=== PATIENT | female | born 1945 | race Caucasian/White ===

== ENCOUNTER 2019-09-16 14:33 | Inpatient (IN) | payer MEDICARE, MEDICAID ==
[~2019-09-16] VITALS: Ht 165.1 cm; Wt 91.6 kg
[2019-09-16 14:33] VITALS: BP_SYST 107
[2019-09-16] MEDS ORDERED: LORazepam 1 MG TABLET PO ONE (15:30)
[2019-09-16 15:47] LABS: BASOPHILS % (AUTO) 0.5 % (0.0-2.0); EOSINOPHILS # (AUTO) 0.2 K/uL (0.0-0.4); EOSINOPHILS % (AUTO) 1.7 % (0.0-4.0); HEMATOCRIT 41.9 % (36-48); HEMOGLOBIN 14.4 g/dL (12.0-16.0); LYMPHOCYTES # (AUTO) 4.8 K/uL (1.0-5.5); LYMPHOCYTES % (AUTO) 51.7 % (20.5-51.5); MEAN CORPUSCULAR HEMOGLOBIN 33 pg (27-31); MEAN CORPUSCULAR HGB CONC 34 % (32-36); MEAN CORPUSCULAR VOLUME 97 fL (79.0-98.0); MONOCYTES # (AUTO) 0.8 K/uL (0.0-1.0); MONOCYTES % (AUTO) 8.3 % (1.7-9.3); NEUTROPHILS # (AUTO) 3.5 K/uL (1.8-7.7); NEUTROPHILS % (AUTO) 37.8 % (40.0-70.0); PLATELET COUNT (AUTO) 208 K/uL (130-430); RED BLOOD CELL COUNT(AUTO) 4.33 MIL/uL (4.2-6.2); RED CELL DISTRIBUTION WIDTH 13.2 % (9.0-15.0); WHITE BLOOD COUNT (AUTO) 9.3 K/uL (4.8-10.8)
[2019-09-16 15:56] LABS: ANION GAP 5 (5-15); CALCIUM 8.9 mg/dL (8.4-11.0); CHLORIDE 103 mmol/L (98-107); CREATININE 0.89 mg/dL (0.55-1.30); GLUCOSE 134 mg/dL (70-99); POTASSIUM 3.7 mmol/L (3.5-5.1); SODIUM SERUM 138 mmol/L (136-145); UREA NITROGEN, BLOOD 18 mg/dL (8-21)
[2019-09-16 16:00] LABS: ALANINE AMINOTRANSFERASE 21 U/L (12-78); ALBUMIN 3.4 g/dL (3.4-4.8); ASPARTATE AMINOTRANSFERASE 14 U/L (10-37); TOTAL BILIRUBIN 0.3 mg/dL (0.0-1.0)
[2019-09-16] MEDS ORDERED: DIVA500T4 PO (17:13)
[2019-09-16] MEDS ORDERED: LITH8SOL PO (17:13)
[2019-09-16] MEDS ORDERED: ASPIRIN 81 MG TAB.CHEW PO ONE (17:15)
[2019-09-16 18:02] VITALS: BP_SYST 146
[2019-09-16] MEDS ORDERED: FLU VACC TS2019(65UP)/MF59C/PF 45 MCG/0.5 ML SYRINGE I.M. PRN (18:15)
[2019-09-16 20:00] VITALS: BP_SYST 120
[2019-09-16] MEDS ORDERED: DIVALPROEX SODIUM 500 MG TAB.SR.24H (DEPAKOTE ER) PO SCH (21:00)
[2019-09-16] MEDS: ZOLPIDEM TARTRATE 5 MG TABLET PO PRN (21:18)
[2019-09-17 00:07] VITALS: BP_SYST 116
[2019-09-17 06:56] LABS: BASOPHILS # (AUTO) 0.1 K/uL (0.0-0.2); BASOPHILS % (AUTO) 0.8 % (0.0-2.0); EOSINOPHILS # (AUTO) 0.7 K/uL (0.0-0.4); HEMATOCRIT 41.7 % (36-48); HEMOGLOBIN 14.6 g/dL (12.0-16.0); LYMPHOCYTES # (AUTO) 4.8 K/uL (1.0-5.5); LYMPHOCYTES % (AUTO) 35.1 % (20.5-51.5); MEAN CORPUSCULAR HEMOGLOBIN 34 pg (27-31); MEAN CORPUSCULAR HGB CONC 35 % (32-36); MEAN CORPUSCULAR VOLUME 98 fL (79.0-98.0); MONOCYTES # (AUTO) 0.9 K/uL (0.0-1.0); MONOCYTES % (AUTO) 6.5 % (1.7-9.3); NEUTROPHILS # (AUTO) 7.2 K/uL (1.8-7.7); PLATELET COUNT (AUTO) 281 K/uL (130-430); RED BLOOD CELL COUNT(AUTO) 4.25 MIL/uL (4.2-6.2); WHITE BLOOD COUNT (AUTO) 13.6 K/uL (4.8-10.8)
[2019-09-17 07:04] LABS: ANION GAP 2 (5-15); CALCIUM 8.6 mg/dL (8.4-11.0); CHLORIDE 103 mmol/L (98-107); CREATININE 0.62 mg/dL (0.55-1.30); GLUCOSE 85 mg/dL (70-99); POTASSIUM 3.6 mmol/L (3.5-5.1); SODIUM SERUM 137 mmol/L (136-145); UREA NITROGEN, BLOOD 15 mg/dL (8-21)
[2019-09-17 07:19] LABS: ALANINE AMINOTRANSFERASE 20 U/L (12-78); ALBUMIN 3.3 g/dL (3.4-4.8); ASPARTATE AMINOTRANSFERASE 16 U/L (10-37); THYROID STIMULATING HORMONE 1.18 uIu/mL (0.36-3.74); TOTAL BILIRUBIN 0.4 mg/dL (0.0-1.0)
[2019-09-17 08:00] VITALS: BP_SYST 124
[2019-09-17 08:32] LABS: CHOLESTEROL 198 mg/dL (<200); HDL CHOLESTEROL 37 mg/dL (>55); LDL CHOLESTEROL 135 mg/dL (<100); TRIGLYCERIDES 133 mg/dL (30-150)
[2019-09-17] MEDS ORDERED: LITHIUM CITRATE PO SCH ×2 (09:00)
[2019-09-17 09:09] LABS: NEUTROPHILS % (AUTO) 52.6 % (40.0-70.0)
[2019-09-17] MEDS: LITHIUM CARBONATE 150 MG CAPSULE PO SCH (10:52)
[2019-09-17 11:21] VITALS: BP_SYST 120
[2019-09-17 16:27] VITALS: BP_SYST 131
[2019-09-17 20:00] VITALS: BP_SYST 129
[2019-09-17 20:39] LABS: LITHIUM 1.2 mEq/L (0.50-1.0)
[2019-09-18 01:39] VITALS: BP_SYST 130
[2019-09-18 08:00] VITALS: BP_SYST 119
[2019-09-18 12:06] LABS: BASOPHILS # (AUTO) 0.1 K/uL (0.0-0.2); BASOPHILS % (AUTO) 0.6 % (0.0-2.0); EOSINOPHILS # (AUTO) 0.3 K/uL (0.0-0.4); EOSINOPHILS % (AUTO) 2.9 % (0.0-4.0); HEMOGLOBIN 14.8 g/dL (12.0-16.0); LYMPHOCYTES % (AUTO) 32.8 % (20.5-51.5); MEAN CORPUSCULAR HEMOGLOBIN 33 pg (27-31); MEAN CORPUSCULAR HGB CONC 34 % (32-36); MEAN CORPUSCULAR VOLUME 98 fL (79.0-98.0); MONOCYTES # (AUTO) 0.7 K/uL (0.0-1.0); MONOCYTES % (AUTO) 7.7 % (1.7-9.3); NEUTROPHILS # (AUTO) 5.1 K/uL (1.8-7.7); PLATELET COUNT (AUTO) 192 K/uL (130-430); RED CELL DISTRIBUTION WIDTH 13.2 % (9.0-15.0)
[2019-09-18 12:15] LABS: ANION GAP 7 (5-15); CALCIUM 8.5 mg/dL (8.4-11.0); CHLORIDE 105 mmol/L (98-107); CREATININE 0.76 mg/dL (0.55-1.30); GLUCOSE 145 mg/dL (70-99); SODIUM SERUM 138 mmol/L (136-145); UREA NITROGEN, BLOOD 17 mg/dL (8-21)
[2019-09-18 12:34] VITALS: BP_SYST 122
[2019-09-18 16:04] VITALS: BP_SYST 119; BP_SYST 125
[2019-09-19 01:11] VITALS: BP_SYST 138
[2019-09-19] MEDS: ZOLPIDEM TARTRATE 5 MG TABLET PO PRN ×2 (03:30→21:18)
[2019-09-19 08:00] VITALS: BP_SYST 102
[2019-09-19] MEDS: LITHIUM CARBONATE 150 MG CAPSULE PO SCH ×2 (08:13→09:00)
[2019-09-19 12:00] VITALS: BP_SYST 109
[2019-09-19 16:04] VITALS: BP_SYST 136
[2019-09-19 20:00] VITALS: BP_SYST 120
[2019-09-20 08:30] VITALS: BP_SYST 140
[2019-09-20] MEDS: LITHIUM CARBONATE 150 MG CAPSULE PO SCH (09:35)
[2019-09-20] MEDS ORDERED: LITHIUM CARBONATE 300 MG TABLET.SA PO ONE (09:45)
[2019-09-20 12:36] VITALS: BP_SYST 96
[2019-09-20 16:00] VITALS: BP_SYST 135
[2019-09-20 20:00] VITALS: BP_SYST 111
[2019-09-20] MEDS: ZOLPIDEM TARTRATE 5 MG TABLET PO PRN (21:25)
[2019-09-21 04:00] VITALS: BP_SYST 126
[2019-09-21 08:00] VITALS: BP_SYST 151
[2019-09-21] MEDS: LITHIUM CARBONATE 300 MG TABLET.SA PO SCH (09:11)
[2019-09-21 12:00] VITALS: BP_SYST 122
[2019-09-21 16:14] VITALS: BP_SYST 127
[2019-09-21 20:00] VITALS: BP_SYST 149
[2019-09-21] MEDS: ZOLPIDEM TARTRATE 5 MG TABLET PO PRN (21:50)
[2019-09-22 02:01] VITALS: BP_SYST 107
[2019-09-22 07:55] VITALS: BP_SYST 115
[2019-09-22] MEDS: LITHIUM CARBONATE 300 MG TABLET.SA PO SCH (09:37)
[2019-09-22 12:36] VITALS: BP_SYST 139
[2019-09-22 16:00] VITALS: BP_SYST 129
[2019-09-22] MEDS: ZOLPIDEM TARTRATE 5 MG TABLET PO PRN (21:30)
[2019-09-23 00:43] VITALS: BP_SYST 154
[2019-09-23 08:00] VITALS: BP_SYST 121
[2019-09-23] MEDS ORDERED: CITALOPRAM HYDROBROMIDE 20 MG TABLET PO SCH (09:00)
[2019-09-23] MEDS: LITHIUM CARBONATE 300 MG TABLET.SA PO SCH (09:54)
[2019-09-23 12:00] VITALS: BP_SYST 118
[2019-09-23 16:00] VITALS: BP_SYST 125
[2019-09-23 20:00] VITALS: BP_SYST 128
[2019-09-23] MEDS: ZOLPIDEM TARTRATE 5 MG TABLET PO PRN (20:56)
[2019-09-24] VITALS: BP_SYST 130
[2019-09-24] MEDS: CITALOPRAM HYDROBROMIDE 20 MG TABLET PO SCH (10:29)
[2019-09-24] MEDS: LITHIUM CARBONATE 300 MG TABLET.SA PO SCH ×2 (10:29→21:20)
[2019-09-24 12:00] VITALS: BP_SYST 111
[2019-09-24 16:51] VITALS: BP_SYST 124
[2019-09-24 20:00] VITALS: BP_SYST 121
[2019-09-24] MEDS: ZOLPIDEM TARTRATE 5 MG TABLET PO PRN (21:20)
[2019-09-25 00:38] VITALS: BP_SYST 129
[2019-09-25 07:18] LABS: BASOPHILS # (AUTO) 0.1 K/uL (0.0-0.2); BASOPHILS % (AUTO) 0.6 % (0.0-2.0); EOSINOPHILS # (AUTO) 0.3 K/uL (0.0-0.4); EOSINOPHILS % (AUTO) 2.4 % (0.0-4.0); HEMATOCRIT 43.7 % (36-48); HEMOGLOBIN 15.1 g/dL (12.0-16.0); LYMPHOCYTES # (AUTO) 4.4 K/uL (1.0-5.5); LYMPHOCYTES % (AUTO) 37.8 % (20.5-51.5); MEAN CORPUSCULAR HEMOGLOBIN 33 pg (27-31); MEAN CORPUSCULAR HGB CONC 35 % (32-36); MEAN CORPUSCULAR VOLUME 96 fL (79.0-98.0); MONOCYTES # (AUTO) 1.1 K/uL (0.0-1.0); MONOCYTES % (AUTO) 9.3 % (1.7-9.3); NEUTROPHILS # (AUTO) 5.8 K/uL (1.8-7.7); NEUTROPHILS % (AUTO) 49.9 % (40.0-70.0); PLATELET COUNT (AUTO) 234 K/uL (130-430); RED BLOOD CELL COUNT(AUTO) 4.55 MIL/uL (4.2-6.2); RED CELL DISTRIBUTION WIDTH 12.9 % (9.0-15.0); WHITE BLOOD COUNT (AUTO) 11.7 K/uL (4.8-10.8)
[2019-09-25 07:40] LABS: ALANINE AMINOTRANSFERASE 44 U/L (12-78); ALBUMIN 3.5 g/dL (3.4-4.8); ANION GAP 5 (5-15); ASPARTATE AMINOTRANSFERASE 22 U/L (10-37); CALCIUM 8.8 mg/dL (8.4-11.0); CHLORIDE 102 mmol/L (98-107); CREATININE 0.71 mg/dL (0.55-1.30); GLUCOSE 101 mg/dL (70-99); POTASSIUM 3.9 mmol/L (3.5-5.1); SODIUM SERUM 134 mmol/L (136-145); TOTAL BILIRUBIN 0.5 mg/dL (0.0-1.0); UREA NITROGEN, BLOOD 15 mg/dL (8-21)
[2019-09-25 08:00] VITALS: BP_SYST 91
[2019-09-25] MEDS: LITHIUM CARBONATE 300 MG TABLET.SA PO SCH ×2 (09:09→21:17)
[2019-09-25] MEDS: CITALOPRAM HYDROBROMIDE 20 MG TABLET PO SCH (09:09)
[2019-09-25 12:36] VITALS: BP_SYST 141
[2019-09-25 16:05] VITALS: BP_SYST 119
[2019-09-25 20:00] VITALS: BP_SYST 133
[2019-09-26] MEDS: ZOLPIDEM TARTRATE 5 MG TABLET PO PRN (00:23)
[2019-09-26 01:52] VITALS: BP_SYST 131
[2019-09-26 08:36] VITALS: BP_SYST 124
[2019-09-26] MEDS: CITALOPRAM HYDROBROMIDE 20 MG TABLET PO SCH (08:41)
[2019-09-26] MEDS: LITHIUM CARBONATE 300 MG TABLET.SA PO SCH ×2 (08:42→20:38)
[2019-09-26 19:00] VITALS: BP_SYST 132
[2019-09-26 20:00] VITALS: BP_SYST 132
[2019-09-27] VITALS: BP_SYST 124
[2019-09-27 08:04] VITALS: BP_SYST 141
[2019-09-27] MEDS: LITHIUM CARBONATE 300 MG TABLET.SA PO SCH ×2 (08:16→21:00)
[2019-09-27] MEDS: CITALOPRAM HYDROBROMIDE 20 MG TABLET PO SCH (08:17)
[2019-09-27 11:24] VITALS: BP_SYST 127
[2019-09-27 16:31] VITALS: BP_SYST 143
[2019-09-27] MEDS ORDERED: DIVALPROEX SODIUM 500 MG TABLET( DEPAKOTE) PO ONE (16:45)
[2019-09-27 20:00] VITALS: BP_SYST 143
[2019-09-27] MEDS: DIVALPROEX SODIUM 500 MG TABLET( DEPAKOTE) PO SCH (21:00)
[2019-09-28 01:22] VITALS: BP_SYST 140
[2019-09-28 04:00] VITALS: BP_SYST 138
[2019-09-28 06:30] LABS: BASOPHILS # (AUTO) 0.1 K/uL (0.0-0.2); BASOPHILS % (AUTO) 0.7 % (0.0-2.0); EOSINOPHILS # (AUTO) 0.4 K/uL (0.0-0.4); EOSINOPHILS % (AUTO) 3.2 % (0.0-4.0); HEMATOCRIT 41.4 % (36-48); HEMOGLOBIN 14.3 g/dL (12.0-16.0); LYMPHOCYTES # (AUTO) 4.9 K/uL (1.0-5.5); LYMPHOCYTES % (AUTO) 37.1 % (20.5-51.5); MEAN CORPUSCULAR HEMOGLOBIN 33 pg (27-31); MEAN CORPUSCULAR HGB CONC 34 % (32-36); MEAN CORPUSCULAR VOLUME 97 fL (79.0-98.0); MONOCYTES # (AUTO) 1.2 K/uL (0.0-1.0); MONOCYTES % (AUTO) 8.8 % (1.7-9.3); NEUTROPHILS # (AUTO) 6.6 K/uL (1.8-7.7); NEUTROPHILS % (AUTO) 50.2 % (40.0-70.0); PLATELET COUNT (AUTO) 279 K/uL (130-430); RED BLOOD CELL COUNT(AUTO) 4.29 MIL/uL (4.2-6.2); RED CELL DISTRIBUTION WIDTH 12.8 % (9.0-15.0); WHITE BLOOD COUNT (AUTO) 13.1 K/uL (4.8-10.8)
[2019-09-28 06:59] LABS: ALANINE AMINOTRANSFERASE 41 U/L (12-78); ALBUMIN 3.3 g/dL (3.4-4.8); ANION GAP 1 (5-15); ASPARTATE AMINOTRANSFERASE 17 U/L (10-37); CALCIUM 8.6 mg/dL (8.4-11.0); CHLORIDE 104 mmol/L (98-107); CREATININE 0.74 mg/dL (0.55-1.30); GLUCOSE 100 mg/dL (70-99); POTASSIUM 3.6 mmol/L (3.5-5.1); SODIUM SERUM 132 mmol/L (136-145); TOTAL BILIRUBIN 0.4 mg/dL (0.0-1.0); UREA NITROGEN, BLOOD 14 mg/dL (8-21); VALPROIC ACID 63 ug/mL (50-100)
[2019-09-28] MEDS: DIVALPROEX SODIUM 500 MG TABLET( DEPAKOTE) PO SCH ×2 (10:07→20:56)
[2019-09-28] MEDS: CITALOPRAM HYDROBROMIDE 20 MG TABLET PO SCH (10:07)
[2019-09-28] MEDS: LITHIUM CARBONATE 300 MG TABLET.SA PO SCH (10:07)
[2019-09-28 12:45] VITALS: BP_SYST 138
[2019-09-28 16:13] LABS: LITHIUM 1.76 mEq/L (0.50-1.0)
[2019-09-28 16:15] VITALS: BP_SYST 121
[2019-09-28 20:00] VITALS: BP_SYST 106
[2019-09-28] MEDS ORDERED: COMMUNICATION ORDER XX ONE (21:15)
[2019-09-28] MEDS ORDERED: ZOLPIDEM TARTRATE 5 MG TABLET PO PRN (21:30)
[2019-09-29 01:18] VITALS: BP_SYST 148
[2019-09-29 08:00] VITALS: BP_SYST 140
[2019-09-29] MEDS: DIVALPROEX SODIUM 500 MG TABLET( DEPAKOTE) PO SCH (09:25)
[2019-09-29] MEDS: CITALOPRAM HYDROBROMIDE 20 MG TABLET PO SCH (09:25)
[2019-09-29 12:30] VITALS: BP_SYST 122
[2019-09-29 14:43] VITALS: BP_SYST 145
== END 2019-09-29 16:34 | DRG 816 ==
LOC: SED 14:33 → STU 17:05 → SMU 09-21 22:27
PROVIDERS: ADMIT Internal Medicine; ATTEND Internal Medicine
DX: T56.891A Toxic effect of other metals, accidental (unintentional), initial encounter (principal); E44.1 Mild protein-calorie malnutrition; F31.4 Bipolar disorder, current episode depressed, severe, without psychotic features; R07.89 Other chest pain; E66.9 Obesity, unspecified; E78.5 Hyperlipidemia, unspecified; I10 Essential (primary) hypertension; F41.1 Generalized anxiety disorder; F41.9 Anxiety disorder, unspecified; Z79.899 Other long term (current) drug therapy; Z91.14 Patient's other noncompliance with medication regimen; Z68.33 Body mass index [BMI] 33.0-33.9, adult; Z59.0 Homelessness; Y92.89 Other specified places as the place of occurrence of the external cause
CPT/HCPCS: 36415; 71045; 80048; 80053; 80061; 80164-TC; 80178-TC; 82550-TC; 83735-TC; 83880; 84439; 84443-TC; 84484; 85025; 93005; 93306; 99285; G0378